=== PATIENT | female | born 1960 | race African-American/Black ===

== ENCOUNTER 2022-05-15 16:50 | Inpatient (IN) ==
[2022-05-15 18:42] LABS: Basophils # 0.1 10*3/uL (0.0-0.2); Basophils % 0.7 % (0.0-0.8); Eosinophils # 0.1 10*3/uL (0.0-0.87); Eosinophils % 1.2 % (0.00-10.9); Hematocrit 40.7 VOL% (35.7-47.0); Hemoglobin 13.4 GM/DL (12.0-16.0); Immature Granulocytes % 0.4 %; Immature Granulocytes Absolute 0.03 #; Lymphocytes # 1.8 10*3/uL (1.4-4.0); Lymphocytes % 21.7 % (21.3-54.2); Mean Corpuscular HGB Conc 32.9 GM/DL (32-36); Mean Corpuscular Volume 88.1 FL (87-102); Mean Platelet Volume 10.5 FL (9.6-12.0); Monocytes # 0.4 10*3/uL (0.11-0.8); Platelet Count 376 T/CUMM (130-400); Red Blood Count 4.62 MC/CUMM (3.8-5.5); Red Cell Distribution Width 13.6 % (9.3-17.3); White Blood Count 8.2 T/CUMM (4-12)
[2022-05-15 18:53] LABS: Lactic Acid 1.5 MMOL/L (0.4-2.0)
[2022-05-15 19:02] LABS: Alanine Aminotransferase 31 U/L (13-56); Albumin 3.8 G/DL (3.4-5.0); Alkaline Phosphatase 143 U/L (45-117); Aspartate Amino Transferase 18 U/L (0-37); Blood Urea Nitrogen 10 MG/DL (7-18); CKMB % 3.32 %; Calcium 9.4 MG/DL (8.5-10.1); Carbon Dioxide 31 MMOL/L (21-32); Chloride 102 MMOL/L (98-107); Glucose 152 MG/DL (74-106); Osmolality,Calculated 284.1 MOS/KG (273-304); Sodium 142 MMOL/L (136-145); Thyroid Stimulating Hormone 0.319 uIU/ml (0.358-3.74); Total Protein 7.9 G/DL (6.4-8.2)
[2022-05-15 19:05] LABS: High Sensitive Troponin I* 103.7 ng/L (0-54)
[2022-05-15 19:06] LABS: Potassium 2.4 MMOL/L (3.5-5.1)
[2022-05-15] MEDS ORDERED: SODIUM CHLORIDE 0.9% 1,000 ML IV STA (19:07)
[2022-05-15] MEDS ORDERED: POTASSIUM CHLORIDE 20 MEQ TABLET PO STA (19:07)
[2022-05-15 20:58] LABS: Bilirubin,Urine Negative (Negative); Blood, Urine Negative (Negative); Glucose,Urine (UA) Negative (Negative); Hyaline Casts,Urine 5 /LPF (0-3); Ketones,Urine Trace mg/dL (Negative); Mucus,Urine Occasional /LPF (Occasional); Nitrite,Urine Negative (Negative); Protein,Urine Negative (Negative); RBC,Urine 1 /HPF (0-4); Squamous Epithelial Cell,Urine Occasional /HPF (0-10); Urine Appearance Clear (Clear); Urine Color Yellow (Yellow); Urine Urobilinogen 0.2 eU/dL (<2.0)
[2022-05-15 21:06] LABS: Barbiturates Screen,Urine Negative (Negative); Benzodiazepines Screen,Urine Negative (Negative); Cannabinoid Screen,Urine Positive (Negative); Opiate Screen,Urine Negative (Negative); Phencyclidine Screen,Urine Negative (Negative)
[2022-05-15] MEDS ORDERED: ALBUTEROL/IPRATROPIUM 3 ML NEB RESP TX PRN (23:27)
[2022-05-15] MEDS ORDERED: NICOTINE 21 MG/24 HR PATCH TRANSDERM PRN (23:27)
[2022-05-15] MEDS ORDERED: GLUCAGON 1 MG VIAL IM PRN (23:27)
[2022-05-15] MEDS ORDERED: diphenhydrAMINE CAP 25 MG CAPSULE PO PRN (23:27)
[2022-05-15] MEDS ORDERED: guaiFENesin/DM ER 600-30 MG TABLET PO PRN (23:27)
[2022-05-15] MEDS ORDERED: ACETAMINOPHEN 325 MG TABLET PO PRN (23:27)
[2022-05-15] MEDS ORDERED: ONDANSETRON 4 MG/2 ML VIAL IV PRN (23:27)
[2022-05-15] MEDS ORDERED: hydrALAZINE 20 MG/1 ML VIAL IV PRN (23:27)
[2022-05-15] MEDS ORDERED: DEXTROSE 10% 250 ML BAG IV PRN (23:35)
[2022-05-16] MEDS: ENOXAPARIN 60 MG/0.6 ML SYRINGE SUBCUT SCH ×2 (00:05→12:11)
[2022-05-16 03:18] LABS: Basophils # 0.1 10*3/uL (0.0-0.2); Basophils % 0.7 % (0.0-0.8); Eosinophils # 0.2 10*3/uL (0.0-0.87); Hematocrit 33.4 VOL% (35.7-47.0); Immature Granulocytes % 0.3 %; Immature Granulocytes Absolute 0.02 #; Lymphocytes # 1.9 10*3/uL (1.4-4.0); Lymphocytes % 26.1 % (21.3-54.2); Mean Corpuscular HGB Conc 32.9 GM/DL (32-36); Mean Corpuscular Volume 88.1 FL (87-102); Mean Platelet Volume 10.2 FL (9.6-12.0); Monocytes # 0.4 10*3/uL (0.11-0.8); Neutrophils % 63.9 % (38.7-73.9); Platelet Count 330 T/CUMM (130-400); Red Blood Count 3.79 MC/CUMM (3.8-5.5); Red Cell Distribution Width 13.4 % (9.3-17.3); White Blood Count 7.4 T/CUMM (4-12)
[2022-05-16 03:35] LABS: Calcium 8.2 MG/DL (8.5-10.1); Potassium 2.7 MMOL/L (3.5-5.1)
[2022-05-16] MEDS: POTASSIUM CHLORIDE RIDER 10 MEQ/100 ML PREMIX IV PRN ×2 (04:40→05:55)
[2022-05-16] MEDS ORDERED: POTASSIUM CHLORIDE 20 MEQ TABLET PO ONE ×3 (06:45→15:38)
[2022-05-16] MEDS: INSULIN LISPRO 100 UNIT/ML SUBCUT SCH ×4 (07:57→21:20)
[2022-05-16] MEDS: PANTOPRAZOLE 40 MG TABLET PO SCH (08:39)
[2022-05-16] MEDS ORDERED: MAGNESIUM SULF RIDER 2 GM/50 ML PREMIX IV ONE (11:30)
[2022-05-16] MEDS: ASPIRIN EC 81 MG TABLET PO SCH (12:11)
[2022-05-16] MEDS: DILTIAZEM CD 120 MG CAPSULE PO SCH (12:11)
[2022-05-16] MEDS: ASCORBIC ACID 500 MG TABLET PO SCH (21:20)
[2022-05-17] MEDS: ENOXAPARIN 60 MG/0.6 ML SYRINGE SUBCUT SCH ×3 (00:38→23:31)
[2022-05-17 05:03] LABS: Basophils # 0.1 10*3/uL (0.0-0.2); Basophils % 0.7 % (0.0-0.8); Eosinophils # 0.2 10*3/uL (0.0-0.87); Hematocrit 33.1 VOL% (35.7-47.0); Hemoglobin 10.8 GM/DL (12.0-16.0); Immature Granulocytes % 0.3 %; Immature Granulocytes Absolute 0.02 #; Lymphocytes # 2.3 10*3/uL (1.4-4.0); Lymphocytes % 32.1 % (21.3-54.2); Mean Corpuscular HGB Conc 32.6 GM/DL (32-36); Mean Corpuscular Volume 89.7 FL (87-102); Mean Platelet Volume 10.4 FL (9.6-12.0); Monocytes # 0.4 10*3/uL (0.11-0.8); Neutrophils % 57.9 % (38.7-73.9); Platelet Count 319 T/CUMM (130-400); Red Blood Count 3.69 MC/CUMM (3.8-5.5); Red Cell Distribution Width 13.8 % (9.3-17.3); White Blood Count 7.1 T/CUMM (4-12)
[2022-05-17 05:27] LABS: Calcium 8.6 MG/DL (8.5-10.1); Osmolality,Calculated 284.4 MOS/KG (273-304); Potassium 3.5 MMOL/L (3.5-5.1)
[2022-05-17] MEDS: INSULIN LISPRO 100 UNIT/ML SUBCUT SCH ×4 (08:44→21:56)
[2022-05-17] MEDS: ASPIRIN EC 81 MG TABLET PO SCH (09:21)
[2022-05-17] MEDS: POTASSIUM CHLORIDE 20 MEQ TABLET PO SCH (09:21)
[2022-05-17] MEDS: ASCORBIC ACID 500 MG TABLET PO SCH ×2 (09:21→21:56)
[2022-05-17] MEDS: PANTOPRAZOLE 40 MG TABLET PO SCH (09:21)
[2022-05-17] MEDS: DILTIAZEM CD 120 MG CAPSULE PO SCH (09:24)
[2022-05-17] MEDS: LOSARTAN 25 MG TABLET PO SCH (11:28)
[2022-05-17] MEDS: SIMVASTATIN 20 MG TABLET PO SCH (21:56)
[2022-05-17] MEDS: ZALEPLON 5 MG CAPSULE PO PRN (21:56)
[2022-05-18 05:20] LABS: Basophils % 0.6 % (0.0-0.8); Eosinophils # 0.2 10*3/uL (0.0-0.87); Eosinophils % 3.4 % (0.00-10.9); Hematocrit 34.2 VOL% (35.7-47.0); Hemoglobin 11.2 GM/DL (12.0-16.0); Immature Granulocytes % 0.1 %; Immature Granulocytes Absolute 0.01 #; Lymphocytes # 2.5 10*3/uL (1.4-4.0); Lymphocytes % 37.1 % (21.3-54.2); Mean Corpuscular HGB Conc 32.7 GM/DL (32-36); Mean Corpuscular Volume 87.7 FL (87-102); Mean Platelet Volume 10.4 FL (9.6-12.0); Monocytes # 0.4 10*3/uL (0.11-0.8); Monocytes % 6.5 % (1.7-12.7); Neutrophils % 52.3 % (38.7-73.9); Platelet Count 348 T/CUMM (130-400); Red Cell Distribution Width 13.9 % (9.3-17.3); White Blood Count 6.7 T/CUMM (4-12)
[2022-05-18 05:36] LABS: Osmolality,Calculated 285.1 MOS/KG (273-304); Potassium 3.4 MMOL/L (3.5-5.1)
[2022-05-18] MEDS: INSULIN LISPRO 100 UNIT/ML SUBCUT SCH ×4 (07:51→21:41)
[2022-05-18] MEDS: POTASSIUM CHLORIDE 20 MEQ TABLET PO SCH (08:48)
[2022-05-18] MEDS: ASCORBIC ACID 500 MG TABLET PO SCH ×2 (08:48→21:41)
[2022-05-18] MEDS: DILTIAZEM CD 120 MG CAPSULE PO SCH (08:50)
[2022-05-18] MEDS: LOSARTAN 25 MG TABLET PO SCH (08:50)
[2022-05-18] MEDS: PANTOPRAZOLE 40 MG TABLET PO SCH (08:50)
[2022-05-18] MEDS: ASPIRIN EC 81 MG TABLET PO SCH (08:50)
[2022-05-18] MEDS ORDERED: POTASSIUM CHLORIDE 20 MEQ TABLET PO ONE (10:26)
[2022-05-18] MEDS ORDERED: LOSARTAN 25 MG TABLET PO ONE (10:33)
[2022-05-18] MEDS: ENOXAPARIN 60 MG/0.6 ML SYRINGE SUBCUT SCH (11:35)
[2022-05-18] MEDS: ZALEPLON 5 MG CAPSULE PO PRN (21:41)
[2022-05-18] MEDS: SIMVASTATIN 20 MG TABLET PO SCH (21:41)
[2022-05-19] MEDS: ENOXAPARIN 60 MG/0.6 ML SYRINGE SUBCUT SCH ×2 (00:30→12:12)
[2022-05-19 06:14] LABS: Calcium 9.2 MG/DL (8.5-10.1); Osmolality,Calculated 282.3 MOS/KG (273-304); Potassium 4.1 MMOL/L (3.5-5.1)
[2022-05-19 06:49] LABS: Basophils # 0.1 10*3/uL (0.0-0.2); Basophils % 0.7 % (0.0-0.8); Eosinophils # 0.2 10*3/uL (0.0-0.87); Eosinophils % 3.4 % (0.00-10.9); Hematocrit 34.5 VOL% (35.7-47.0); Hemoglobin 11.5 GM/DL (12.0-16.0); Immature Granulocytes % 0.3 %; Immature Granulocytes Absolute 0.02 #; Lymphocytes # 2.6 10*3/uL (1.4-4.0); Lymphocytes % 38.3 % (21.3-54.2); Mean Corpuscular HGB Conc 33.3 GM/DL (32-36); Mean Corpuscular Volume 87.3 FL (87-102); Monocytes # 0.5 10*3/uL (0.11-0.8); Monocytes % 7.2 % (1.7-12.7); Neutrophils % 50.1 % (38.7-73.9); Platelet Count 343 T/CUMM (130-400); Red Blood Count 3.95 MC/CUMM (3.8-5.5); Red Cell Distribution Width 13.8 % (9.3-17.3); White Blood Count 6.8 T/CUMM (4-12)
[2022-05-19] MEDS: POTASSIUM CHLORIDE 20 MEQ TABLET PO SCH (09:31)
[2022-05-19] MEDS: ASPIRIN EC 81 MG TABLET PO SCH (09:31)
[2022-05-19] MEDS: DILTIAZEM CD 120 MG CAPSULE PO SCH (09:32)
[2022-05-19] MEDS: PANTOPRAZOLE 40 MG TABLET PO SCH (09:33)
[2022-05-19] MEDS: LOSARTAN 50 MG TABLET PO SCH (09:33)
[2022-05-19] MEDS: ASCORBIC ACID 500 MG TABLET PO SCH ×2 (09:33→21:39)
[2022-05-19] MEDS: INSULIN LISPRO 100 UNIT/ML SUBCUT SCH ×4 (09:36→21:51)
[2022-05-19] MEDS: SIMVASTATIN 20 MG TABLET PO SCH (21:38)
[2022-05-20] MEDS: ENOXAPARIN 60 MG/0.6 ML SYRINGE SUBCUT SCH ×2 (00:09→12:09)
[2022-05-20 06:12] LABS: Basophils # 0.1 10*3/uL (0.0-0.2); Basophils % 0.6 % (0.0-0.8); Eosinophils # 0.3 10*3/uL (0.0-0.87); Eosinophils % 4.2 % (0.00-10.9); Hematocrit 36.6 VOL% (35.7-47.0); Hemoglobin 11.7 GM/DL (12.0-16.0); Immature Granulocytes % 0.5 %; Immature Granulocytes Absolute 0.04 #; Lymphocytes # 2.9 10*3/uL (1.4-4.0); Lymphocytes % 36.9 % (21.3-54.2); Mean Corpuscular Volume 90.4 FL (87-102); Mean Platelet Volume 10.6 FL (9.6-12.0); Monocytes # 0.6 10*3/uL (0.11-0.8); Monocytes % 7.2 % (1.7-12.7); Neutrophils % 50.6 % (38.7-73.9); Platelet Count 353 T/CUMM (130-400); Red Blood Count 4.05 MC/CUMM (3.8-5.5); Red Cell Distribution Width 13.9 % (9.3-17.3); White Blood Count 7.9 T/CUMM (4-12)
[2022-05-20 06:34] LABS: Calcium 8.9 MG/DL (8.5-10.1); Osmolality,Calculated 287.1 MOS/KG (273-304); Potassium 4.2 MMOL/L (3.5-5.1)
[2022-05-20] MEDS: ASCORBIC ACID 500 MG TABLET PO SCH (08:30)
[2022-05-20] MEDS: DILTIAZEM CD 120 MG CAPSULE PO SCH (08:30)
[2022-05-20] MEDS: LOSARTAN 50 MG TABLET PO SCH (08:31)
[2022-05-20] MEDS: ASPIRIN EC 81 MG TABLET PO SCH (08:31)
[2022-05-20] MEDS: POTASSIUM CHLORIDE 20 MEQ TABLET PO SCH (08:31)
[2022-05-20] MEDS: PANTOPRAZOLE 40 MG TABLET PO SCH (08:31)
[2022-05-20] MEDS: INSULIN LISPRO 100 UNIT/ML SUBCUT SCH ×2 (08:32→12:01)
[2022-05-20] MEDS ORDERED: LOSARTAN 25 MG TABLET PO ONE (09:15)
[2022-05-20 15:25] VITALS: BP 145/36
[2022-05-21] MEDS ORDERED: LOSARTAN 25 MG TABLET PO SCH (09:00)
== END 2022-05-20 13:46 | disposition home or self-care (01) | DRG 201 ==
LOC: EDBD → EDUNIT# → N.ED 16:50 → N.TELEN 23:22
PROVIDERS: ADMIT Internal Medicine; ATTEND Internal Medicine